=== PATIENT | male | born 1930 | race African-American/Black ===

== ENCOUNTER 2016-05-06 18:33 | Observation (INO) | payer MEDICARE ==
[~2016-05-06] VITALS: Ht 177.8 cm; Wt 99.8 kg
[~2016-05-06 18:33] MED LIST: ASPI-1035 PO; CARV25TA47 PO; LISI40TA4 PO; NIFE60TA64 PO; OMEG1CAP17 PO; ROSU10TA PO; TAMS0.4C31 PO
[2016-05-06 19:48] LABS: BASOPHILS % 1.1 % (0.0-2.0); HEMATOCRIT. 42.7 % (42.0-52.0); HEMOGLOBIN. 13.8 g/dL (14.0-18.0); LYMPHOCYTES % 13.2 % (20.0-50.0); MEAN CORPUSCULAR HEMOGLOBIN 29.2 pg (28.0-32.0); MEAN CORPUSCULAR HGB CONC 32.3 g/dL (31.0-37.0); MEAN CORPUSCULAR VOLUME 90.3 fL (80.0-94.0); MEAN PLATELET VOLUME 11.2 fl (7.4-10.4); MONOCYTES % 8.8 % (2.0-8.0); NEUTROPHILS % 73.9 % (40.0-76.0); PLATELET 156 x1000/uL (130-400); RED BLOOD CELL COUNT 4.72 mill/uL (4.7-6.1); RED CELL DISTRIBUTION WIDTH 13.9 % (11.6-14.6); WHITE BLOOD COUNT 13.9 x1000/uL (4.5-11.0)
[2016-05-06 19:50] LABS: CHLORIDE 102 mEq/L (98-107)
[2016-05-06 19:52] LABS: INDEX HEMOLYSI 1 (1-3); INDEX ICTERIC 1 (1-4); INDEX LIPEMIC 1 (1-3); INR 1.1; PROTHROMBIN TIME 11.9 sec
[2016-05-06 19:53] LABS: CALCIUM 8.7 mg/dL (8.5-10.1)
[2016-05-06 19:57] LABS: ALANINE AMINOTRANSFERASE 35 IU/L (13-61); ALBUMIN 3.5 g/dL (3.4-5.0); ANION GAP 15; CARBON DIOXIDE 28 mEq/L (21-32); UREA NITROGEN BLOOD 17 mg/dL (7-21); eGFR > 60 mL/min (>60)
[2016-05-06 20:02] LABS: NT PRO B-TYPE NATRIURETIC PEP 1449 pg/mL (5-125); TROPONIN I 0.02 ng/mL (0.00-0.04)
[2016-05-06] MEDS ORDERED: ASPIRIN 325MG TABLET PO ONE (20:30)
[2016-05-06] MEDS ORDERED: FUROSEMIDE 40MG/4ML VIAL IVP ONE (20:30)
[2016-05-07 00:50] VITALS: BP 131/85
[2016-05-07 04:00] VITALS: BP 115/73
[2016-05-07 06:49] LABS: BASOPHILS % 0.8 % (0.0-2.0); EOSINOPHILS % 2.8 % (0.0-5.0); HEMATOCRIT. 40.1 % (42.0-52.0); HEMOGLOBIN. 13.2 g/dL (14.0-18.0); LYMPHOCYTES % 19.6 % (20.0-50.0); MEAN CORPUSCULAR HEMOGLOBIN 29.7 pg (28.0-32.0); MEAN PLATELET VOLUME 10.8 fl (7.4-10.4); MONOCYTES % 11.3 % (2.0-8.0); NEUTROPHILS % 65.5 % (40.0-76.0); PLATELET 164 x1000/uL (130-400); RED BLOOD CELL COUNT 4.46 mill/uL (4.7-6.1); RED CELL DISTRIBUTION WIDTH 13.4 % (11.6-14.6); WHITE BLOOD COUNT 10.8 x1000/uL (4.5-11.0)
[2016-05-07 08:15] VITALS: BP 112/68
[2016-05-07 08:48] LABS: ANION GAP 14; CALCIUM 8.5 mg/dL (8.5-10.1); CARBON DIOXIDE 29 mEq/L (21-32); CHLORIDE 104 mEq/L (98-107); HDL CHOLESTEROL 54 mg/dL (40-59); INDEX HEMOLYSI 1 (1-3); INDEX ICTERIC 1 (1-4); INDEX LIPEMIC 1 (1-3); LDL CHOLESTEROL 41 mg/dL (5-100); TRIGLYCERIDE 71 mg/dL (0-150); UREA NITROGEN BLOOD 15 mg/dL (7-21); eGFR > 60 mL/min (>60)
[2016-05-07 08:54] LABS: NT PRO B-TYPE NATRIURETIC PEP 1609 pg/mL (5-125); TROPONIN I 0.03 ng/mL (0.00-0.04)
[2016-05-07] MEDS ORDERED: CARVEDILOL 25MG TABLET PO SCH (09:00)
[2016-05-07] MEDS ORDERED: NIFEDIPINE XL 60MG TAB PO SCH (09:00)
[2016-05-07] MEDS ORDERED: FUROSEMIDE 20MG/2ML VIAL IVP SCH (09:00)
[2016-05-07] MEDS: ASPIRIN 81MG EC TABLET PO SCH (10:26)
[2016-05-07] MEDS: TAMSULOSIN HCL 0.4MG SR CAPSULE PO SCH (10:27)
[2016-05-07] MEDS: FAMOTIDINE 20MG TABLET PO SCH ×2 (10:27→21:07)
[2016-05-07] MEDS: LISINOPRIL 40MG TABLET PO SCH (10:28)
[2016-05-07] MEDS: HEPARIN 5000 UNITS/ML VIAL SUBCUT SCH ×2 (10:35→21:06)
[2016-05-07 12:00] VITALS: BP 110/66
[2016-05-07 16:00] VITALS: BP 125/63
[2016-05-07] MEDS: FUROSEMIDE 40MG/4ML VIAL IVP SCH (18:18)
[2016-05-07] MEDS: POTASSIUM CHLORIDE 20MEQ TABLET SR PO SCH (18:18)
[2016-05-07] MEDS: LOSARTAN POTASSIUM 50 MG TABLET PO SCH ×2 (18:19→21:00)
[2016-05-07 20:00] VITALS: BP 125/74
[2016-05-07] MEDS: CARVEDILOL 6.25 MG TABLET PO SCH (21:07)
[2016-05-07] MEDS: ATORVASTATIN CALCIUM 20MG TABLET PO SCH (21:07)
[2016-05-08] VITALS: BP 129/78
[2016-05-08] MEDS: IPRATROPIUM/ALBUTEROL 0.5-3(2.5)MG/3ML NEB HHN SCH ×4 (02:26→20:14)
[2016-05-08 04:00] VITALS: BP 130/75
[2016-05-08 06:47] LABS: ALANINE AMINOTRANSFERASE 19 IU/L (13-61); ALBUMIN 2.9 g/dL (3.4-5.0); ANION GAP 12; CALCIUM 8.2 mg/dL (8.5-10.1); CARBON DIOXIDE 29 mEq/L (21-32); CHLORIDE 105 mEq/L (98-107); INDEX HEMOLYSI 1 (1-3); INDEX ICTERIC 1 (1-4); INDEX LIPEMIC 1 (1-3); UREA NITROGEN BLOOD 17 mg/dL (7-21); eGFR > 60 mL/min (>60)
[2016-05-08 08:00] VITALS: BP 135/76
[2016-05-08] MEDS: LOSARTAN POTASSIUM 50 MG TABLET PO SCH ×2 (08:09→21:49)
[2016-05-08] MEDS: POTASSIUM CHLORIDE 20MEQ TABLET SR PO SCH (08:09)
[2016-05-08] MEDS: HEPARIN 5000 UNITS/ML VIAL SUBCUT SCH ×2 (08:09→21:49)
[2016-05-08] MEDS: FAMOTIDINE 20MG TABLET PO SCH ×2 (08:09→21:48)
[2016-05-08] MEDS: LISINOPRIL 40MG TABLET PO SCH (08:09)
[2016-05-08] MEDS: FUROSEMIDE 40MG/4ML VIAL IVP SCH (08:09)
[2016-05-08] MEDS: ASPIRIN 81MG EC TABLET PO SCH (08:09)
[2016-05-08] MEDS: CARVEDILOL 6.25 MG TABLET PO SCH ×2 (08:10→21:49)
[2016-05-08] MEDS: TAMSULOSIN HCL 0.4MG SR CAPSULE PO SCH (08:10)
[2016-05-08 12:00] VITALS: BP 125/76
[2016-05-08 16:00] VITALS: BP 120/76
[2016-05-08] MEDS ORDERED: POTASSIUM CHLORIDE 20MEQ TABLET SR PO NR (16:02)
[2016-05-08] MEDS ORDERED: BISACODYL 5MG TABLET PO PRN (16:15)
[2016-05-08 20:00] VITALS: BP 128/90
[2016-05-08] MEDS: ATORVASTATIN CALCIUM 20MG TABLET PO SCH (21:48)
[2016-05-09] VITALS: BP 118/76
[2016-05-09] MEDS: IPRATROPIUM/ALBUTEROL 0.5-3(2.5)MG/3ML NEB HHN SCH ×2 (01:34→08:38)
[2016-05-09 04:00] VITALS: BP 126/73
[2016-05-09 05:53] LABS: ALANINE AMINOTRANSFERASE 23 IU/L (13-61); ANION GAP 13; CALCIUM 8.5 mg/dL (8.5-10.1); CARBON DIOXIDE 28 mEq/L (21-32); CHLORIDE 107 mEq/L (98-107); INDEX HEMOLYSI 1 (1-3); INDEX ICTERIC 1 (1-4); INDEX LIPEMIC 1 (1-3); UREA NITROGEN BLOOD 22 mg/dL (7-21); eGFR > 60 mL/min (>60)
[2016-05-09 08:00] VITALS: BP 106/63
[2016-05-09] MEDS: TAMSULOSIN HCL 0.4MG SR CAPSULE PO SCH (08:47)
[2016-05-09] MEDS: FAMOTIDINE 20MG TABLET PO SCH (08:47)
[2016-05-09] MEDS: FUROSEMIDE 40MG/4ML VIAL IVP SCH (08:47)
[2016-05-09] MEDS: HEPARIN 5000 UNITS/ML VIAL SUBCUT SCH (08:47)
[2016-05-09] MEDS: ASPIRIN 81MG EC TABLET PO SCH (08:47)
[2016-05-09] MEDS: LISINOPRIL 40MG TABLET PO SCH (08:48)
[2016-05-09] MEDS: POTASSIUM CHLORIDE 20MEQ TABLET SR PO SCH (08:48)
[2016-05-09] MEDS: CARVEDILOL 6.25 MG TABLET PO SCH (08:51)
[2016-05-09] MEDS: LOSARTAN POTASSIUM 50 MG TABLET PO SCH (08:51)
[2016-05-09 12:00] VITALS: BP 111/71
[2016-05-09 12:34] VITALS: BP 111/71
== END 2016-05-09 14:35 | disposition home or self-care (01) ==
LOC: ER 18:33 → INTOOBSV 21:06 → 8WST 21:06
PROVIDERS: ADMIT Internal Medicine; ATTEND Ophthalmology
DX: I50.42 Chronic combined systolic (congestive) and diastolic (congestive) heart failure (principal); I11.0 Hypertensive heart disease with heart failure; D64.9 Anemia, unspecified; N40.0 Benign prostatic hyperplasia without lower urinary tract symptoms; E87.6 Hypokalemia; E78.00 Pure hypercholesterolemia, unspecified; E78.5 Hyperlipidemia, unspecified; R60.0 Localized edema
CPT/HCPCS: 36415; 71010; 80048; 80053; 80061; 83880; 84443; 84484; 85025; 85610; 93005; 94640; 94664; 96372; 96374; 96376; 99285; G0378; J1644; J1940; J7040; 96366; J7620